=== PATIENT | male | born 1985 | race Caucasian/White ===

== ENCOUNTER 2017-05-11 12:51 | Emergency (ER) | payer BC ==
[2017-05-11] MEDS ORDERED: Acetaminophen 500 MG TAB ONE (13:46)
--- NOTE | 2017-05-11 16:29 | RAD ---
LEFT FOOT THREE VIEWS: 05/11/2017 No fracture was appreciated. All bones currently appear intact. If pain persists, then delayed fol low-up images to look for an occult injury may be needed. IMPRESSION: No acute finding. POS: HOME
== END 2017-05-11 13:50 | disposition home or self-care (01) ==
LOC: BURERS 12:51
DX: S90.32XA Contusion of left foot, initial encounter (principal); W20.8XXA Other cause of strike by thrown, projected or falling object, initial encounter